=== PATIENT | male | born 1945 | race Two or more races ===

== ENCOUNTER 2019-02-08 17:51 | Emergency (ER) | payer MEDICARE, OTHER ==
[~2019-02-08] VITALS: Ht 172.7 cm; Wt 88.9 kg
[2019-02-08 17:56] VITALS: Ht 172.7 cm; Wt 88.9 kg
[2019-02-08 21:46] VITALS: BP 125/91; PULSE 88; RESP 16
== END 2019-02-08 21:47 | disposition home or self-care (01) ==
LOC: E/R 17:51
DX: R51 Headache (principal); I10 Essential (primary) hypertension; I25.10 Atherosclerotic heart disease of native coronary artery without angina pectoris; E11.9 Type 2 diabetes mellitus without complications
CPT/HCPCS: 70450